=== PATIENT | female | born 1990 | race African-American/Black ===

== ENCOUNTER 2023-09-10 02:08 | Emergency (ER) | payer OTHER ==
[2023-09-10 02:19] VITALS: BMI 34.5
[2023-09-10] MEDS ORDERED: ACETAMINOPHEN 1000 MG/100 ML BAG IVPB ONE (02:53)
[2023-09-10 03:30] LABS: BASO % 0.6 % (0-2.0); HEMATOCRIT 37.8 % (32.4-45.2); HEMOGLOBIN 13.4 GM/dL (10.7-15.3); LYMPH % 31.6 % (8-40); MCH 28.6 pg (25.7-33.7); MCHC 35.4 g/dl (32.0-36.0); MEAN CELL VOLUME 80.9 fl (80-96); MEAN PLT VOLUME 6.8 fl (7.5-11.1); MONO % 7.5 % (3.8-10.2); NEUT % 57.3 % (42.8-82.8); PLATELET COUNT 315 10^3/uL (134-434); RBC 4.67 M/mm3 (3.60-5.2); RDW 14.9 % (11.6-15.6); WHITE BLOOD COUNT 9.3 K/mm3 (4.0-10.0)
[2023-09-10 03:34] LABS: EPI CELLS >36 /uL (0-25.1); HYALINE CASTS 1 /uL (0-3.1); PH,URINE 6.5 (5.0-8.0); URINE APPEARANCE CLEAR; URINE BACTERIA 1244 /uL (0-1359); URINE BILIRUBIN NEGATIVE (NEGATIVE); URINE COLOR YELLOW; URINE GLUCOSE (UA) NEGATIVE (NEGATIVE); URINE KETONE NEGATIVE (NEGATIVE); URINE LEUK ESTERASE TRACE (NEGATIVE); URINE NITRITE NEGATIVE (NEGATIVE); URINE PROTEIN NEGATIVE (NEGATIVE); URINE RBC 127 /uL (0-23.9); URINE UROBILINOGEN 0.2 mg/dL (0.2-1.0); URINE WBC 92 /uL (0-25.8)
[2023-09-10 03:38] LABS: INR 1.02 (0.83-1.09); PROTHROMBIN TIME (PATIENT) 11.8 SEC (9.7-13.0)
[2023-09-10 03:41] LABS: ACTIVATED PTT 30.1 SECONDS (25.2-36.5)
[2023-09-10 04:05] LABS: POTASSIUM 3.8 mmol/L (3.5-5.1)
[2023-09-10 04:08] LABS: CALCIUM 9.2 mg/dL (8.5-10.1)
[2023-09-10 04:09] LABS: ALBUMIN 3.4 g/dl (3.4-5.0); BLOOD UREA NITROGEN 11.6 mg/dL (7-18)
[2023-09-10 04:12] LABS: CREATININE 0.6 mg/dL (0.55-1.3)
[2023-09-10 04:14] LABS: BILIRUBIN,TOTAL 0.3 mg/dL (0.2-1); TOT PROT 7.9 g/dl (6.4-8.2)
[2023-09-10 05:08] VITALS: BP 138/91; PULSE 79; RESP 16; TEMP 98
== END 2023-09-10 07:01 | disposition home or self-care (01) ==
LOC: JER 02:08
PROC: 3E033NZ Introduction of Analgesics, Hypnotics, Sedatives into Peripheral Vein, Percutaneous Approach (ICD-10-PCS; principal; 2023-09-10)
DX: R51.9 Headache, unspecified (principal); H53.8 Other visual disturbances; I10 Essential (primary) hypertension; H53.71 Glare sensitivity
CPT/HCPCS: 36415; 70450-TC; 80053; 81003; 84703; 85025; 85610; 85730; 87086; 93005; 93010; 99285-25